=== PATIENT | male | born 1980 ===

== ENCOUNTER 2016-10-05 16:06 | Emergency (ER) | payer SELFPAY ==
[2016-10-05 16:11] VITALS: PULSE 88; RESP 21; TEMP 97.8; O2SAT 100
[2016-10-05 16:22] VITALS: BP 140/90
--- NOTE | 2016-10-05 16:26 | ED PDOC ---
Upper Extremity Pain/Injury Time Seen by Provider: 10/05/16 16:16 Chief Complaint (Nursing): Upper Extremity Problem/Injury Chief Complaint (Provider): Upper Extremity Problem/Injury History Per: Patient History/Exam Limitations: no limitations Onset/Duration Of Symptoms: Days (x2) Additional Complaint(s): Carroll Pastor, 36 year old male presents to the ED on 10/05/16 after injuring his right bicep while moving furniture 2 days prior to arrival. The patient states he felt his muscle stretch. He also reports swelling and pain which prompted him to visit the emergency room today. The patient has not taken any medications for this and did not perform any strenuous activity after injuring his right bicep. Of note, the patient declines administration of analgesics. Past Medical History Reviewed: Historical Data, Nursing Documentation, Vital Signs Vital Signs: Last Vital Signs Temp 97.8 F 10/05/16 16:08 Pulse 88 10/05/16 16:08 Resp 21 10/05/16 16:08 BP 140/90 10/05/16 16:08 Pulse Ox 100 10/05/16 16:08 - Medical History PMH: No Chronic Diseases - Family History Family History: States: Unknown Family Hx - Social History Drugs: Cannabis - Home Medications Home Medications: Ambulatory Orders Medication Instructions Recorded Cyclobenzaprine [Cyclobenzaprine 10 mg PO TID #20 tab 10/05/16 HCl] Ibuprofen [Motrin] 600 mg PO Q6 #20 tab 10/05/16 - Allergies Allergies/Adverse Reactions: Allergies Allergy/AdvReac Type Severity Reaction Status Date / Time No Known Allergies Allergy Verified 10/05/16 16:11 Review of Systems ROS Statement: Except As Marked, All Systems Reviewed And Found Negative Musculoskeletal: Positive for: Arm Pain (right bicep pain and swelling ) Physical Exam - Reviewed Nursing Documentation Reviewed: Yes Vital Signs Reviewed: Yes - Physical Exam Appears: Positive for: Non-toxic, No Acute Distress Head Exam: Positive for: ATRAUMATIC, NORMOCEPHALIC Extremity: Positive for: Normal ROM (of right arm), Tenderness (over insertion of bicep tendon and over belly of muscle), Other (mild edema; no ecchymosis ) Neurologic/Psych: Positive for: Alert, Oriented (x3) - ECG O2 Sat by Pulse Oximetry: 100 (RA) Pulse Ox Interpretation: Normal Medical Decision Making Medical Decision Making: Initial Impression: Injury to right bicep Initial Plan: * [CT] Ext Upper W/O Contrast Right Stat CT Scan: IMPRESSION: No abnormality identified. This examination is limited in nature for evaluation of biceps tendon disruption. Recommend evaluation with magnetic resonance imaging if there is continued clinical suspicion of biceps tendon tear. Pt placed in shoulder sling. RCE therapy advised. Given Ortho referral for follow up and [facility] as well. Scribe Attestation: Documented by Stacy Daniels, acting as a scribe for Yolanda Tijerina PA-C. Provider Scribe Attestation: All medical record entries made by the Scribe were at my direction and personally dictated by me. I have reviewed the chart and agree that the record accurately reflects my personal performance of the history, physical exam, medical decision making, and the department course for this patient. I have also personally directed, reviewed, and agree with the discharge instructions and disposition. Disposition - Clinical Impression Clinical Impression: Biceps tendonitis - Patient ED Disposition Is Patient to be Admitted: No - Disposition Referrals: Rashard Baxter III, MD [Staff Provider] - Disposition: Routine/Home Disposition Time: 16:00 Condition: STABLE Prescriptions: Cyclobenzaprine [Cyclobenzaprine HCl] 10 mg PO TID #20 tab Ibuprofen [Motrin] 600 mg PO Q6 #20 tab Instructions: Tendinitis (ED) Forms: [facility] (Malay)
--- NOTE | 2016-10-05 17:31 | CT ---
PROCEDURE: CT right humerus HISTORY: r/o Torn Biceps Tendon COMPARISON: Not available TECHNIQUE: 2.5 mm contiguous axial sections were acquired through the right humerus. Sagittal and coronal images were reformatted from the axial scan. FINDINGS: There is no osseous fracture. There is no lytic or blastic osseous lesion. Shoulder is included in this examination. There is no evidence of dislocation. The articular surfaces are preserved. The acromioclavicular articulation appears intact. Computed tomography is inadequate for evaluation of biceps tendon disruption. Evaluation with magnetic resonance imaging is advised if there is clinical suspicion of biceps tendon tear. IMPRESSION: No abnormality identified. This examination is limited in nature for evaluation of biceps tendon disruption. Recommend evaluation with magnetic resonance imaging if there is continued clinical suspicion of biceps tendon tear.
== END 2016-10-05 18:07 | disposition home or self-care (01) ==
LOC: H.ER 16:06
DX: M75.21 Bicipital tendinitis, right shoulder (principal)